=== PATIENT | female | born 1960 | race Caucasian/White ===

== ENCOUNTER 2019-08-04 14:58 | Outpatient (CLI) | payer OTHER, SELFPAY ==
[2019-08-04 16:28] LABS: Blood Urea Nitrogen 21 mg/dL (7-17); Calcium 9.1 mg/dL (8.4-10.2); Carbon Dioxide 22 mmol/L (22-30); Chloride 104 mmol/L (98-107); Estimated Glomerular Filt Rate > 60; Glucose 85 mg/dL (65-105); Potassium 4.3 mmol/L (3.4-5.0); Sodium 140 mmol/L (137-145)
== END 2019-08-04 14:59 | disposition home or self-care (01) ==
LOC: ANHLAB 15:02
PROVIDERS: PCP Internal Medicine; Visit Provider Anesthesiology
DX: Z79.899 Other long term (current) drug therapy (principal)
CPT/HCPCS: 36415; 80048

== ENCOUNTER 2019-08-09 01:17 | Day surgery (SDC) | payer OTHER, SELFPAY ==
[2019-07-26 13:25] VITALS: BMI 39.8
--- NOTE | 2019-08-08 22:08 | HP_ITS ---
DATE OF SERVICE: 08/09/2019 DIAGNOSIS: Osteoarthritis of the 1st carpometacarpal joint with chronic pain. HISTORY: The patient is 58. She is a right-hand dominant lady, who presented first in December of 2018 with problems of bilateral 1st CMC joint osteoarthritis. X-rays were obtained of both wrists. At that time, she underwent corticosteroid injections in December of that year. In January, she came and received a corticosteroid injection into the right 1st A1 marichuy. Later in the year, both CMC joints were reinjected. In July of this year, she presented more interested in surgery and we described that to her placement of incision, the risk to cutaneous nerves, possibility of persistent pain, the need for ongoing therapy and possibly stiffness in her joints. She hopes to proceed with that. She is scheduled for a resection arthroplasty of the left trapezium with Arthrex InternalBrace. PAST MEDICAL HISTORY: ALLERGIES: SHE HAS ALLERGIES TO LATEX AND SULFA. CURRENT MEDICATIONS: Included daily vitamins, some calcium, estradiol, allopurinol, furosemide 40 mg daily. PAST SURGICAL HISTORY: Include a hysterectomy in 1997, tonsillectomy in 1976. She has had some vein stripping in 1998. She is a nonsmoker. FAMILY HISTORY: Noncontributory. SOCIAL HISTORY: She lives in [place]. She works for [employer]. She is . PHYSICAL EXAMINATION: GENERAL: She is a pleasant, informative lady. She is in no acute distress. VITAL SIGNS: She is 5 feet 10 inches and weighs 285 pounds. HEENT: Unremarkable. CHEST: Clear to auscultation. HEART: Regular rate and rhythm by palpation. ABDOMEN: Soft, nontender. EXTREMITIES: Specifically revealed tenderness at the 1st CMC joint on both thumbs. Plan is trapezium resection arthroplasty left hand with Arthrex InternalBrace under general anesthesia. D I MT: Benjamin ALCANTAR
[2019-08-09] VITALS (9 sets, daily range): BP systolic 108–129; BP diastolic 56–73; PULSE 80–96; RESP 10–18; TEMP 36.1; O2SAT 93–99
--- NOTE | ~2019-08-09 | XR_ITS ---
EXAMINATION: XR surgery orthopedic DATE: 08/09/2019 11:21 INDICATION: Left thumb trapezial resection TECHNIQUE: 2 fluoroscopic spot images of the left hand were obtained during procedure performed by Dr Bruce Gillette. Radiologist was not present for the imaging or procedure. The amount of fluoroscopy time use d during this procedure was 0.5 minutes. COMPARISON: None. FINDINGS: Postoperative change of the trapezial resection likely for first carpal metacarpal suspension arthrop lasty. A couple residual small bone fragments are seen at the resection bed. Alignment of the remaini ng bones remains essentially anatomic. No fracture. Expected gas in the soft tissues at the postopera tive bed. IMPRESSION: 1. Fluoroscopy utilized during left trapezial resection. See procedure note for further detail. Reviewed, dictated and finalized at location A. ATIONS LIEUTENANT
--- NOTE | 2019-08-09 07:20 | WPDHPUPDATE1 ---
History and Physical Update Update Date/Time: 08/09/19 07:20 History and Physical has been reviewed, including an updated exam of the patient. There are NO changes in the patient's condition. Risks, benefits, and alternatives have been discussed and questions answered. Patient agrees to proceed with procedure.
[2019-08-09] MEDS: LACTATED RINGERS 1,000 ML 30 ML IV CONT ×2 (08:05→11:38)
--- NOTE | 2019-08-09 08:48 | WPDANESEPPF ---
Anes - Initial Pre Proc Eval Procedure: Operation Date: 08/09/19 09:30 Proposed Procedures p Left Trapezium Resection Arthroplasty - Chaz Gillette MD Date/Time: 08/09/19 08:48 Surgeon: Chaz Gillette MD Pre Op Diagnosis: Arthritis Left Wrist Patient Data Age: 58 Gender: F Height: 1.78 m Weight: 126.8 kg Last Vital Signs Temp 36.1 C L 08/09/19 08:15 Pulse 80 08/09/19 08:15 Resp 18 08/09/19 08:15 BP 121/67 08/09/19 08:15 Pulse Ox 99 08/09/19 08:15 Allergies Allergy/AdvReac Type Severity Reaction Status Date / Time codeine Allergy Severe Nausea and Unverified 08/09/19 07:54 Vomiting latex Allergy Mild Rash Verified 08/09/19 07:54 adhesive Allergy Unknown RED RASH Unverified 08/09/19 07:54 Sulfa (Sulfonamide Allergy Unknown Rash Verified 08/09/19 07:54 Antibiotics) Home Medications Medication Instructions Recorded Confirmed Type allopurinol 100 mg PO DAILY 07/26/19 08/09/19 History calcium carbonate-vitamin D3 1 tablet DAILY 07/26/19 08/09/19 History [Calcium 600 + D(3)] estradiol 1 mg PO DAILY 07/26/19 08/09/19 History furosemide 40 mg PO DAILY 07/26/19 08/09/19 History multivitamin 1 cap PO DAILY 07/26/19 08/09/19 History Patient hx anesthesia problems: none Family hx anesthesia problems: none PMFSH Past Medical History Medical History (Updated 08/09/19 @ 08:50 by Mehul Loya MD) Arthritis Gout Morbid obesity with BMI of 40.0-44.9, adult Surgical History Surgical History (Updated 08/09/19 @ 08:50 by Mehul Loya MD) H/O: hysterectomy Social History Social History Smoking status: Never smoker Anes - Eval Final PreProcedure Day of Procedure 08/09/19 08:48 Patient weight: morbidly obese Heart: regular rate and rhythm Lungs: clear to auscultation and normal air movement Airway: Mallampati scale class II Neurological: alert and oriented Last oral intake: >/= 8 hours ASA classification: III Emergent: no Anesthetic plan: proceed Anesthesia type and monitoring: general LMA Informed Consent: The patient's anesthetic plan and its attendant risks and benefits were discussed with the patient/family/POA. Questions were solicited and answers provided to the satisfaction of the patient/family/POA.
--- NOTE | 2019-08-09 09:35 | P.OPB_ITS ---
Procedure Note - Brief Procedure Note - Brief Date of procedure: 08/09/19 Pre-op diagnosis: Arthritis Left Wrist Post-op diagnosis: same (Osteoarthritis of left 1st carpometacarpal joint) Procedure performed: Left trapezium resection arthroplasty with Arthrex Business Rules Analyst alBrace suspension. Implants: Arthrex InternalBrace Anesthesia: GETA Surgeon: Chaz Gillette MD Crusher Assembler: Dayton Marie Estimated blood loss (mL): 5 Drains: No Packing: No Pathology: none sent Complications: No immediate complications Condition: stable Disposition: PACU
[2019-08-09] MEDS: ceFAZolin 3 GM/D5W 100 ML 100 ML IVPB (09:37)
[2019-08-09] MEDS: LIDO 1%/EPINEPHRINE 1:100,000 20 ML VIAL INFILTRATE (10:09)
[2019-08-09] MEDS: KETOROLAC 30 MG/ML VIAL (*BKC) IV PUSH (11:14)
--- NOTE | 2019-08-09 11:48 | PM.PROC ---
Procedure Note - Detailed Date of procedure: 08/09/19 Pre-op diagnosis: Arthritis Left Wrist Post-op diagnosis: same (Left 1st carpal metacarpal joint osteoarthritis) Procedure performed: Left trapezium resection arthroplasty with Arthrex InternalBrace. Description of procedure: The left wrist was marked in the holding area. The patient was taken to the operating room and placed supine on the operating table. A time-out was held and confirmed. The extremity was prepped and draped in usual fashion as she was given general endotracheal intubation anesthesia. The extremity was marked for the incision and locally infiltrated with 1% lidocaine with epinephrine. The tourniquet was inflated to 250 mmHg. The incision was made as marked and carried bluntly through the subcutaneous tissue to the 1st carpal metacarpal joint capsule. Cutaneous nerves were carefully identified and dissected out of harm's way. The extensor pollicis brevis and abductor pollicis longus were identified. The dissection was carried out between these 2. An incision was made through the dorsal joint capsule and the capsular tissue was dissected away from the base of the metacarpal and the presenting surface of the trapezium. Dissection of the trapezium was done with a [place] elevator in large part we also utilized a half-inch osteotome and mallet to split this bone. It was removed piecemeal with a rongeur. The flexor carpi radialis was identified deep in this wound and was not disturbed. The dorsal branch of the radial artery was not identified. The 1st dorsal compartment was opened from within this wound. C-arm images confirmed the removal of the trapezium. The Arthrex internal brace components were brought onto the back table. The appropriate C-wire was passed into the base of the 1st metacarpal and its position also was confirmed with the C-arm. The internal brace was attached to the base of the metacarpal. C-arm images with a free C-wire were again used to identify the appropriate site for insertion into the base of the 2nd metacarpal. The that hole was drilled with the guidewire. Its position was confirmed on PA and lateral images. It was overdrilled and the ulnar end of the internal brace applied with the thumb in adduction. C-arm images confirmed the very satisfactory position of the metacarpal and visual exam confirmed the stability of it. The capsular tissue was repaired with 3-0 Vicryl, inverting some into the cavity. The extensor pollicis brevis and abductor pollicis longus were left in situ and not joined. We demonstrated satisfactory range of motion of the thumb. The skin was closed with a running 5 0 nylon suture. This area was infiltrated with 0.5% Marcaine 10 milliliter. A soft bulky bandage with a thumb spica splint was applied for temporary use. She is discharged with instructions in wound care and follow-up she has a prescription for hydrocodone . Surgeon: Chaz Gillette MD
--- NOTE | 2019-08-09 14:11 | SUR.PHASEII ---
1400- PT DOZING AT INTERVALS. FAMILY MEMBER IN ROOM. DISCHARGE INSTRUCTIONS REVIEWED WITH PT AND FAMILY. PT WANTS TO CONTINUE TO STAY IN [facility]. STATES SHE ISN'T READY YET TO TRY TO GET DRESSED.
== END 2019-08-09 14:40 | disposition home or self-care (01) ==
PROVIDERS: PCP Internal Medicine; Visit Provider Plastic Surgery
PROC: (CPT 25447; principal; 2019-08-09 09:30)
DX: M18.12 Unilateral primary osteoarthritis of first carpometacarpal joint, left hand (principal); M10.9 Gout, unspecified; E66.01 Morbid (severe) obesity due to excess calories; Z68.41 Body mass index [BMI] 40.0-44.9, adult
CPT/HCPCS: 25447; 76000; A9270; J0131; J0690; J1100; J1170; J1885; J2250; J2405; J2704; J3010; J7120

== ENCOUNTER 2019-10-10 14:30 | Outpatient (RCR) | payer OTHER, SELFPAY ==
--- NOTE | 2019-08-23 11:30 | OTOPEVAL ---
OCCUPATIONAL THERAPY INITIAL EVALUATION 08/23/2019 Thank you for referring this patient to [facility]. Rosa M will benefit from skilled OT 2x/week for 4 weeks for deficits outlined below. Please review, sign, date and return this plan of care BRENT. I agree with and certify that the following plan of care is medically necessary. Referring Physician Date Attending Provider: Chaz Gillette MD *OT Outpatient Evaluation Start: 08/23/19 10:39 Outpatient Past Medical History Gastrointestinal History Hx Cholecystectomy Yes Genitourinary History Hx Kidney Stones Yes: ESWL Musculoskeletal History Hx Arthritis Yes: BILATERAL HANDS/KNEES Hx Gout Yes: POSSIBLE Hematological History Hx Hematological Disorders No Significant History Endocrine History Hx Endocrine Disorders No Significant History HEENT History Hx Tonsillectomy Yes Integumentary History Hx Skin Disorders No Significant History Reproductive History Hx Hysterectomy Yes Psychosocial History Hx Psychiatric Disorders No Significant History Pain History History of Any Previous or Ongoing No Significant History Instance of Pain Anesthesia History Hx Anesthesia Reactions No Significant History Evaluation Information Problem Diagnosis (L) CMC arthritis Onset 08/09/19 Additional Evaluation Detail s/p (L) trapezium resection with Arthrex internal brace Subjective Information Rosa M reports she has been Query Text:As Reported By Patient/ weaning herself off the brace Family and in the past few days has not worn the brace at all. She also no longer sleeps in the brace. She has been trying to use her hand as much as possible . She is eager to get back to work. 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 She has returned to doing laundry, cooking, and driving. She is not back to work yet, however she will have to be able to use a computer/type, count money and change, stock supplies, and lift. She anticipates
--- NOTE | 2019-09-18 16:09 | OTOPEVAL ---
OCCUPATIONAL THERAPY RE-EVALUATION REPORT 09/18/2019 Thank you for referring this patient to [facility]. As noted below, Rosa M is making excellent gains with functional use, pain reduction, and ROM. She will benefit from continued skilled OT 1x/week for 3 weeks for progression of carbon paper interleafer and pinch strengthening, manual therapy, and use of modalities. Please review, sign, date and return this re-evaluation report BRENT. I agree with and certify that the following plan of care is medically necessary. Referring Physician Date Admitting Provider: Attending Provider: Chaz Gillette MD Referring Provider: *OT Outpatient Re-Evaluation Evaluation Information Problem Diagnosis (L) CMC arthritis Onset 08/09/19 Additional Evaluation Detail s/p (L) trapezium resection with Arthrex internal brace Subjective Information Rosa M reports that everything Query Text:As Reported By Patient/ has gotten easier from her Family since she started coming to therapy. She is able to eat with the left hand, lifting objects, doing the dishes, counting money, and using the register at work. She continues to have some pain, but overall it has decreased significantly. Pain with pinching/pressure with the thumb. Pain Assessment Timing of Pain Assessment Timing of Pain Assessment Re-assessment Pain Scale Pain Scale Used Numeric (1 - 10) Self Report Pain Assessment Left Hand(s) Reported Pain Level 0 Current Pain Intensity 0 Lowest Pain Intensity 0 Greatest Pain Intensity 3 Other Pain Aggravating Factors Pinching Pain Score Pain Score 0: Self Report Upper Extremity Range of Motion Wrist Range of Motion Left Wrist Flexion - Active 45 Wrist Extension - Active 65 Wrist Radial Deviation - Active 10 Wrist Ulnar Deviation - Active 25 Wrist Range of Motion Limitations Pain Wrist Range of Motion Comments (L) wrist AROM from 08/23/19: flexion 45* - R wrist flexion is also 45* extension 50* RD 5* UD 25* Finger Range of Motion Left Reason Not Measured WNL/Left Thumb Range of Motion Left Thumb MCP Flexion - Active 30 Thumb MCP Flexion - Passive 40 Thumb MCP Extension - Active 0 Thumb IP Flexion - Active 75 Thumb CMC Radial Abduction - Active 60 Thumb CMC Palmar Abduction - Active 60 Opposition to 2nd Digit Tip 0 Opposition to 3rd Digit Tip 0 Opposi
--- NOTE | 2019-10-10 15:16 | OTOPEVAL ---
OCCUPATIONAL THERAPY RE-EVAL AND DISCHARGE NOTE 10/10/2019 Thank you for referring Rosa M Heard to [facility]. Plan to discharge today with excellent therapy outcomes. She has minimal pain and no functional limitations at this time. She is currently independent with home exercise program to continue strengthening. Please review, sign, date and return this discharge note BRENT. I agree with and certify that the following plan of care is medically necessary. Referring Physician Date Admitting Provider: Attending Provider: Chaz Gillette MD Referring Provider: *OT Outpatient Re-Evaluation & Discharge Evaluation Information Problem Diagnosis (L) CMC arthritis Onset 08/09/19 Additional Evaluation Detail s/p (L) trapezium resection with Arthrex internal brace Subjective Information Rosa M reports that everything Query Text:As Reported By Patient/ has gotten easier from her Family since she started coming to therapy. She is able to eat with the left hand, lifting objects, doing the dishes, counting money, and using the register at work. She states that she rarely has pain. She no longer has pain with pinching with the thumb. Pain Assessment Timing of Pain Assessment Timing of Pain Assessment Re-assessment Pain Scale Pain Scale Used Numeric (1 - 10) Self Report Pain Assessment Left Hand(s) Reported Pain Level 0 Lowest Pain Intensity 0 Greatest Pain Intensity 2 Pain Score Pain Score 0: Self Report Upper Extremity Range of Motion Wrist Range of Motion Left Wrist Flexion - Active 45 Wrist Extension - Active 70 Wrist Radial Deviation - Active 15 Wrist Ulnar Deviation - Active 35 Wrist Range of Motion Comments (L) wrist AROM from 09/18/19: flexion 45* extension 65* RD 15* UD 25* Finger Range of Motion Left Reason Not Measured WFL/Left Thumb Range of Motion Left Thumb MCP Flexion - Active 40 Thumb MCP Flexion - Passive 50 Thumb MCP Extension - Active 0 Thumb IP Flexion - Active 80 Thumb CMC Radial Abduction - Active 60 Thumb CMC Palmar Abduction - Active 60 Opposition to 2nd Digit Tip 0 Opposition to 3rd Digit Tip 0 Opposition to 4th Digit Tip 0 Opposition to 5th Digit Tip 0 Opposition to 5th Digit Base 1 Thumb Range of Motion Comments Thumb AROM measurements from 09/18/19: CMC radial abd 60* CM
== END 2019-11-06 08:41 | disposition home or self-care (01) ==
LOC: ANHOT 14:30
PROVIDERS: PCP Internal Medicine; Visit Provider Plastic Surgery
DX: Z47.89 Encounter for other orthopedic aftercare (principal)
CPT/HCPCS: 97018; 97035; 97110; 97140; 97165

== ENCOUNTER → 2020-01-22 16:01 | Outpatient (CLI) | payer OTHER, SELFPAY ==
--- NOTE | ~2020-01-22 | XR_ITS ---
EXAMINATION: XR wrist LT min 3V DATE: 01/22/2020 16:13 INDICATION: Osteoarthritis of the left wrist status post trapezium resection TECHNIQUE: Posteroanterior, ulnar deviation, oblique, and lateral views of the left wrist were obtain ed. COMPARISON: 12/23/2018 FINDINGS: There are changes of interval trapezium resection. Bone alignment is normal. There is no fr acture. The soft tissues are normal. IMPRESSION: 1. Interval trapezium resection without acute osseous abnormality. Reviewed, dictated and finalized at location A.
== END ==
PROVIDERS: PCP Internal Medicine; Visit Provider Plastic Surgery
DX: M19.031 Primary osteoarthritis, right wrist (principal)
CPT/HCPCS: 73110

== ENCOUNTER → 2020-04-25 17:19 | Outpatient (CLI) | payer OTHER, SELFPAY ==
--- NOTE | ~2020-04-25 | MM_ITS ---
EXAMINATION: MM screening marlen BI w yash HISTORY: Screening mammogram TECHNIQUE: Craniocaudal and mediolateral oblique 3-D tomosynthesis images were obtained and synthetic 2-D images were generated. CAD analysis was submitted and interpreted. COMPARISON: No prior mammogram is available for comparison at this institution. BREAST PARENCHYMAL COMPOSITION: The breasts are almost entirely fatty. FINDINGS: There is a low-density circumscribed 3.3 mm opacity in the upper outer quadrant left breast , likely a benign intramammary lymph node. There is no evidence of suspicious mass, calcification, or architectural distortion to suggest malignancy in either breast. There has been no suspicious interv al change. IMPRESSION: 1. No mammographic evidence of malignancy. 2. Recommend routine screening mammography in one year. BI-RADS Category 2: Benign finding(s). Reviewed, dictated and finalized at location A.
== END ==
PROVIDERS: PCP Internal Medicine; Visit Provider Obstetrics & Gynecology
DX: Z12.31 Encounter for screening mammogram for malignant neoplasm of breast (principal)
CPT/HCPCS: 77063; 77067

== ENCOUNTER → 2021-01-22 16:56 | Outpatient (CLI) | payer OTHER, SELFPAY ==
--- NOTE | ~2021-01-22 | XR_ITS ---
EXAMINATION: XR wrist RT min 3V EXAM DATE: 01/22/2021 17:11 INDICATION: Osteoarthritis. TECHNIQUE: Right wrist frontal, frontal with ulnar deviation, oblique and lateral projections obtain ed and reviewed. Comparison is made to prior examination from 12/23/2018. FINDINGS: Right wrist scapholunate joint space is maintained. There is moderate to severe 1st carpome tacarpal primary osteoarthritis. There are no acute fractures or dislocations identified. There is n o subcutaneous gas. The soft tissue is unremarkable. There are no radiopaque foreign bodies. IMPRESSION: Moderate to severe right 1st CMC osteoarthritis. Reviewed, dictated and finalized at location G.
== END ==
PROVIDERS: Visit Provider Plastic Surgery
DX: M19.031 Primary osteoarthritis, right wrist (principal); M18.11 Unilateral primary osteoarthritis of first carpometacarpal joint, right hand
CPT/HCPCS: 73110

== ENCOUNTER 2021-02-26 14:26 | Outpatient (CLI) | payer OTHER, SELFPAY ==
[2021-02-26 15:22] LABS: Anion Gap 6 mmol/L (8-16); Blood Urea Nitrogen 16 mg/dL (7-17); Calcium 8.9 mg/dL (8.4-10.2); Carbon Dioxide 30 mmol/L (22-30); Chloride 100 mmol/L (98-107); Estimated Glomerular Filt Rate > 60; Glucose 102 mg/dL (65-110); Potassium 3.7 mmol/L (3.4-5.0); Sodium 136 mmol/L (137-145)
== END 2021-02-26 14:27 | disposition home or self-care (01) ==
PROVIDERS: Anesthesiology; PCP Internal Medicine; Visit Provider Plastic Surgery
DX: Z01.818 Encounter for other preprocedural examination (principal); T50.2X5A Adverse effect of carbonic-anhydrase inhibitors, benzothiadiazides and other diuretics, initial encounter
CPT/HCPCS: 36415; 80048

== ENCOUNTER 2021-02-27 01:00 | Day surgery (SDC) | payer OTHER, SELFPAY ==
[2021-02-25 15:19] VITALS: BMI 41.0
--- NOTE | 2021-02-26 13:43 | WPDANESEPPF ---
Anes - Initial Pre Proc Eval Procedure: Operation Date: 02/27/21 07:30 Proposed Procedures p Right Trapezium Resection Arthroplasty with Arthrex Internal Brace - Chaz Gillette MD Date/Time: 02/26/21 13:43 Surgeon: Chaz Gillette MD Pre Op Diagnosis: right 1st carpometacarpal joint OA Patient Data Age: 60 Gender: F Height: 1.78 m Weight: 129.73 kg Allergies Allergy/AdvReac Type Severity Reaction Status Date / Time codeine Allergy Severe Nausea and Verified 02/27/21 06:18 Vomiting latex Allergy Mild Rash Verified 02/27/21 06:18 adhesive Allergy Unknown RED RASH Verified 02/27/21 06:18 Sulfa (Sulfonamide Allergy Unknown Rash Verified 02/27/21 06:18 Antibiotics) tramadol AdvReac Mild Other Verified 02/27/21 06:19 Home Medications Medication Instructions Recorded Confirmed Type allopurinol 100 mg PO DAILY 07/26/19 02/27/21 History estradiol 1 mg PO DAILY 07/26/19 02/27/21 History furosemide 40 mg PO DAILY 07/26/19 02/27/21 History cholecalciferol (vitamin D3) 50 mcg PO DAILY 02/25/21 02/27/21 History [Vitamin D3] fexofenadine-pseudoephedrine 1 tablet PO QAM PRN 02/25/21 02/27/21 History [Almaz-D 24 Hour] ibuprofen [Advil] 600 mg PO Q6H PRN 02/25/21 02/25/21 History multivitamin [Multivitamin 1 tablet PO DAILY 02/25/21 02/27/21 History W/Vitamin C] zinc sulfate 220 mg PO DAILY 02/25/21 02/27/21 History Patient hx anesthesia problems: none Family hx anesthesia problems: none PMFSH Past Medical History Medical History (Updated 08/09/19 @ 08:50 by Mehul Loya MD) Arthritis Gout Morbid obesity with BMI of 40.0-44.9, adult Surgical History Surgical History (Updated 08/09/19 @ 08:50 by Mehul Loya MD) H/O: hysterectomy Social History Social History Smoking status: Never smoker Second hand tobacco smoke exposure: No Alcohol intake: never Substance use: never Substance use type: does not use Living arrangements: with family Spiritual care concerns: No Anes - Eval Final PreProcedure Day of Procedure 02/26/21 13:43 Patient weight: obese Heart: regular rate and rhythm Lungs: clear to auscultation and normal air movement Airway: Mallampati scale class II Neurological: alert and oriented Last oral intake: >/= 8 hours ASA classification: III Emergent: no Anesthetic plan: proceed Anesthesia type and monitoring: general LMA Informed Consent: The patient's anesthetic plan and its attendant risks and benefits were discussed with the patient/family/POA. Questions were solicited and answers provided to the satisfaction of the patient/family/POA.
[2021-02-27] VITALS (7 sets, daily range): BP systolic 109–130; BP diastolic 74–86; PULSE 67–88; RESP 12–21; TEMP 36.6; O2SAT 99–100; BMI 40.2
--- NOTE | ~2021-02-27 | XR_ITS ---
EXAMINATION: XR surgery orthopedic DATE: 02/27/2021 09:00 INDICATION: Right thumb arthroplasty TECHNIQUE: 4 fluoroscopic images of the right wrist and carpus were obtained during procedure perform ed by Dr. Gillette. Radiologist was not present for the imaging or procedure. The amount of fluoroscopy time used during this procedure was 0.3 minutes. COMPARISON: 01/22/2021 FINDINGS: The trapezium has been resected with expected small amount of soft tissue gas at the operative bed. T here is a round lucency at the base of the first metacarpal likely representing a tendon tunnel or an chor site for the first carpometacarpal suspension arthroplasty. Alignment remains near-anatomic. No fractures identified. IMPRESSION: 1. Expected appearance of a first carpal metacarpal suspension arthroplasty with resection of the tra pezium. Reviewed, dictated and finalized at location B. IMPRESSION: 1. Expected appearance of a first carpal metacarpal suspension arthroplasty wit h resection of the trapezium.
--- NOTE | 2021-02-27 07:12 | WPDHPUPDATE1 ---
History and Physical Update Update Date/Time: 02/27/21 07:12 History and Physical has been reviewed, including an updated exam of the patient. There are NO changes in the patient's condition. Risks, benefits, and alternatives have been discussed and questions answered. Patient agrees to proceed with procedure.
[2021-02-27] MEDS: LACTATED RINGERS 1,000 ML 30 ML IV CONT ×2 (07:24→09:18)
[2021-02-27] MEDS: ceFAZolin 3 GM/D5W 100 ML 100 ML IVPB (07:28)
--- NOTE | 2021-02-27 07:38 | PM.OP ---
Procedure Note - Brief Procedure Note - Brief Date of procedure: 02/27/21 Pre-op diagnosis: right 1st carpometacarpal joint OA Post-op diagnosis: same Procedure performed: Right trapezium resection arthroplasty with Arthrex internal brace Implants: Arthrex internal brace Anesthesia: GLMA Surgeon: Chaz Gillette MD Slide Fastener Repairer: Sindhu Drains: No Packing: No Pathology: none sent Complications: No immediate complications Condition: stable Disposition: PACU
[2021-02-27] MEDS: KETOROLAC 15 MG/ML VIAL (*BKC) IV PUSH (07:45)
[2021-02-27] MEDS: LIDO 1%/EPINEPHRINE 1:100,000 50 ML VIAL INFILTRATE (08:48)
--- NOTE | 2021-02-27 09:29 | P.OP_ITS ---
Procedure Note - Detailed Date of Procedure 02/27/21 Pre-op Diagnosis right 1st carpometacarpal joint OA Post-op Diagnosis same Procedure Performed Right trapezium resection arthroplasty with Arthrex internal brace Surgeon Chaz Gillette MD Accounting Manager Sindhu Loya Anesthesia general Indications Right 1st carpal metacarpal joint osteoarthritic pain failing conservative treatment Description of Procedure The right basal joint area was marked on the patient's hand in the preop area. She was then taken to the operating room placed supine on the operating table. A time-out was held and confirmed. She was given general endotracheal a nesthesia. Was also given thumb mg of IV Tylenol firm 15 mg of IV Toradol. She had already received 3 g of IV Ancef. The right upper extremity was prepped and draped in the usual fashion. The site was marked for an incision and locally infiltrated with 1% lidocaine with epinephrine. The extremity was exsanguinated with the use of a 4 in Viet wrap and the tourniquet was inflated to 250 mmHg. The incision was made as marked and dissection was carried through the subcutaneous tissue. The extensor tendons were identified. The single cutaneous sensory nerve branch was identified and retracted to the dorsal aspect out of harm's way. The interspace between the extensor pollicis brevis and the abductor pollicis longus was incised to access the joint capsule. The base of the metacarpal was stripped several mm to allow visualization into the joint. The capsule was dissected away from the trapezium. The trapezium was eventually divided with an osteotome and was removed with the rongeur. The site was imaged to confirm removal of the trapezium. The Arthrex internal brace system was applied at this point with drilling of the guide holes at the base of the 2nd metacarpal and the base of the 1st metacarpal. Those sites were imaged with the guidewire in place. The Arthrex internal brace anchor was inserted through the base of the 2nd metacarpal. The strap was brought across under the 1st metacarpal through a separate fenestration between the abductor pollicis longus and abductor pollicis brevis. The 2nd anchor was placed at that point and satisfactory stability was achieved. The capsule tissue was then repaired with 3-0 Ethibond. The wound was closed with 4-0 intradermal Monocryl. 6 milliliter of 0.25% Marcaine with epinephrine were injected into this area. The tourniquet was released before wound closure and the site was relatively dry. The soft bandage with an Orthoglass thumb spica splint was applied the discharge in the operating room stable condition. She has declined prescription narcotic pain medicine that she did tolerate well last case. She has ibuprofen and tramadol at home. Implants Arthrex internal brace Estimated Blood Loss 5 Tourniquet Time 51 Drains No Packing No Pathology none sent Complications No immediate complications Condition stable Disposition PACU
--- NOTE | 2021-02-27 09:49 | SUR.PHASEI ---
Simple mask removed at 0945.
== END 2021-02-27 10:48 | disposition home or self-care (01) ==
PROVIDERS: PCP Internal Medicine; Visit Provider Plastic Surgery
PROC: (CPT 25447; principal; 2021-02-27 07:30)
DX: M18.11 Unilateral primary osteoarthritis of first carpometacarpal joint, right hand (principal)
CPT/HCPCS: 25447; 36415; 80048; A9270; C1713; J0131; J0690; J1100; J1885; J2405; J2704; J3010; J7120

== ENCOUNTER 2021-04-15 15:00 | Outpatient (RCR) | payer OTHER, SELFPAY ==
--- NOTE | 2021-03-18 08:57 | OTOPEVAL ---
OCCUPATIONAL THERAPY INITIAL EVALUATION REPORT 03/18/21 Thank you for referring Rosa M Heard to [facility].? The patient is scheduled to be seen for therapy? 1x/week for 4 weeks. Please review, sign, date and return this plan of care BRENT. I agree with and certify that the following plan of care is medically necessary. Referring Physician Date Referring Provider: Chaz Gillette MD *OT Outpatient Evaluation Start: 03/18/21 08:08 Outpatient Past Medical History Neurological History Hx Neurological Disorders No Significant History Cardiovascular History Hx Vascular Surgery Yes: VARICOSE VEINS WITH STRIPPING Respiratory History Hx Other Respiratory Disorders Yes: Covid + 2019; not hospitalized Gastrointestinal History Hx Cholecystectomy Yes Hx Diverticulitis Yes Genitourinary History Hx Kidney Stones Yes: ESWL Hx Other Genitourinary Disorders Yes: urethral sling 2019 Musculoskeletal History Hx Arthritis Yes: BILATERAL HANDS/KNEES Hx Orthopedic Surgery Yes: Bilat CMC trapezium rescection Hx Other Musculoskeletal Disorders Yes: joint osteoarthritis Hematological History Hx Hematological Disorders No Significant History Endocrine History Hx Endocrine Disorders No Significant History HEENT History Hx Tonsillectomy Yes Integumentary History Hx Skin Disorders No Significant History Reproductive History Hx Endometriosis Yes Hx Fibroids Yes Hx Hysterectomy Yes: 1997 Psychosocial History Hx Psychiatric Disorders No Significant History Pain History History of Any Previous or Ongoing No Significant History Instance of Pain Anesthesia History Hx Other Anesthesia Reactions Yes: slow to wake up Other History Hx of Latex Allergy Yes Evaluation Information Problem Diagnosis s/p right trapezium resection with Arthrex Internal Brace Onset 02/27/21 Cause CMC OA Subjective Information Patient has had the left hand Query Text:As Reported By Patient/ CMC done ~1.5 years ago. She Family states the left hand feels normal . 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 She is off work right now. Overall reports the right hand feels a lot better than the left
--- NOTE | 2021-04-15 15:45 | OTOPEVAL ---
OCCUPATIONAL THERAPY RE-EVALUATION AND DISCHARGE SUMMARY 04/15/21 Patient presents today for OT re-evaluation 7 weeks s/p CMC arthroplasty. She has made improvements with functional ROM and strength, but does have some residual deficits for which she has HEP to address. She has an excellent understanding how to progress to more resistance with her HEP and understands what to expect as she has had her left CMC done also. Recommend discharging from OT today with independence in HEP. Thank you for referring Rosa M Heard to [facility].? Please review, sign, date and return this D/C Summary BRENT. I agree with and certify that the following plan of care is medically necessary. Referring Physician Date Referring Provider: Chaz Gillette MD *OT Outpatient Evaluation Start: 03/18/21 08:08 Evaluation Information Problem Diagnosis s/p right trapezium resection with Arthrex Internal Brace Onset 02/27/21 Cause CMC OA Additional Evaluation Detail 03/18/21 - Initial evaluation. Patient has been working on active/passive ROM and began strengthening at 6 weeks post op. She has been progressively using her hand for more tasks with less pain and overall is doing excellent. Subjective Information Patient reports that her ROM Query Text:As Reported By Patient/ and strength is improving. 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 Also noted improvements with writing. She states the arm will let me know when I've overused it . Pain Assessment Timing of Pain Assessment Timing of Pain Assessment Re-assessment Pain Scale Pain Scale Used Numeric (1 - 10) Self Report Pain Assessment Right Thumb(s) Reported Pain Level 0 Lowest Pain Intensity 0 Greatest Pain Intensity 4 Pain Aggravating Factors Exercise/Activity Pain Score Pain Score 0: Self Report Upper Extremity Range of Motion Wrist Range of Motion Right Wrist Flexion - Active 60 Wrist Extension - Active 65 Wrist Radial Deviation - Active 20 Wrist Ulnar Deviation - Active 25 Wrist Range of Motion Comments Flexion improved by 10* Extension improved by 35* RD improved by 10* UD remained WNL Finger Range of Motion Right Reason Not Measured WNL/Right Thumb Range of Motion Right Thumb MCP Flexion - Active 35 Thumb IP Flexion - Active
== END 2021-04-16 09:39 | disposition home or self-care (01) ==
LOC: ANHOT 15:00
PROVIDERS: PCP Internal Medicine; Visit Provider Plastic Surgery
DX: Z48.89 Encounter for other specified surgical aftercare (principal)
CPT/HCPCS: 97018; 97110; 97165

== ENCOUNTER 2022-11-21 07:51 | Outpatient (CLI) | payer OTHER, SELFPAY ==
[2022-11-21 08:33] LABS: Anion Gap 4 mmol/L (8-16); Blood Urea Nitrogen 19 mg/dL (7-17); Calcium 8.7 mg/dL (8.4-10.2); Carbon Dioxide 29 mmol/L (22-30); Chloride 107 mmol/L (98-107); Estimated Glomerular Filt Rate > 60; Glucose 87 mg/dL (65-110); Potassium 4.2 mmol/L (3.4-5.0); Sodium 140 mmol/L (137-145)
== END 2022-11-21 07:52 | disposition home or self-care (01) ==
LOC: ANHLAB 07:53
PROVIDERS: PCP Physician Assistant Medical; Visit Provider Anesthesiology
DX: R35.89 Other polyuria (principal); Z01.818 Encounter for other preprocedural examination
CPT/HCPCS: 36415; 80048

== ENCOUNTER 2022-11-24 00:31 | Day surgery (SDC) | payer OTHER, SELFPAY ==
[2022-11-16 14:40] VITALS: BMI 39.9
--- NOTE | 2022-11-16 14:44 | SUR.PREOP ---
Report to the Outpatient Waiting Room, entrance under the green pavilion located off [facility], at time _0600 on date _11/24/22 . Planned Procedure Time: __0730 . Time changes happen often and if your time is changed the preop area will call you the afternoon before. - You and your visitor will be asked to self-screen and do not enter if you have any COVID symptoms. - A mask is optional within the hospital at this time. Patients may have clear liquids (water, carbonated beverages, clear teas, apple juice) until 3 hours prior to surgery with a maximum of 20 ounces. - No food from midnight until time of surgery - Infants may have breast milk until 4 hours before surgery, formula 6 hours prior to surgery. - Children will be allowed to drink immediately following surgery. If applicable, please bring a bottle or sippy cup to assist with drinking. Juice, water, soda, and popsicles are readily available. For infants on formula, please bring formula the day of surgery. Pacifiers are allowed. Take the following medications with a SIP of water the morning of surgery: __n/a DO NOT STOP ANY OF YOUR OTHER PRESCRIPTION MEDICATIONS PRIOR TO SURGERY ?EXCEPT THE FOLLOWING Medications to discontinue per physician _vitamin supplements Date to take last dose__11/21/22 Please no make-up, nail korean, hairspray, perfume, deodorant, or body powder the day of surgery. No jewelry (including any body piercings) or valuables the day of surgery, leave them at home. Please take a shower or bath the night before, or the morning of, surgery with an antibacterial soap. Wear comfortable, loose fitting clothing. Children are encouraged to wear pajamas. - Jewelry must be removed prior to entering the operating room. Rings and piercings that are not removed may be cut off. - The hospital will not accept responsibility for valuables. - Please leave all valuables, including medications, at home the day of surgery. If you are going home after surgery, a licensed regional company flatbed truck driver must drive you home. - NO public transportation without another adult if you receive anesthesia. - We recommend that an adult stay with you for 24 hours following discharge. - We also recommend that you do not drive, make important decision, drink alcoholic beverages, or take any drugs that were not prescribed by your health care provider for at least 24 hours after your discharge time. For Pediatric surgeries, we recommend two adults accompany the child home. Follow any additional instructions given to you from your surgeon. If you or anyone in your household have experienced Covid symptoms in the past week, please notify your surgeon or the nurse liaison at the phone number below for possible testing. Telephone instructions given to _oriana mendiola and asked if any additional questions and then verbalized understanding. Patient advised to call surgeon office or pre surgery nurse liaison [phone] if any additional questions.
[2022-11-24] MEDS: LACTATED RINGERS 1,000 ML 30 ML IV CONT (06:55)
--- NOTE | 2022-11-24 06:59 | WPDHPUPDATE1 ---
History and Physical Update Update Date/Time: 11/24/22 06:59 History and Physical has been reviewed, including an updated exam of the patient. There are NO changes in the patient's condition. Risks, benefits, and alternatives have been discussed and questions answered. Patient agrees to proceed with procedure.
[2022-11-24 07:02] VITALS: BP 105/89; PULSE 72; RESP 14; TEMP 36.3; O2SAT 100
--- NOTE | 2022-11-24 07:08 | WPDANESEPPF ---
Anes - Initial Pre Proc Eval Procedure: Operation Date: 11/24/22 07:30 Proposed Procedures p Excision of Two Subcutaneous Masses of Forehead - Gen Sánchez MD Date/Time: 11/24/22 07:08 Surgeon: Gen Sánchez MD Pre Op Diagnosis: 2 Subcutaneous Masses on Forehead Patient Data Age: 62 Gender: F Height: 1.78 m Weight: 121.5 kg Last Vital Signs Temp 97.3 F L 11/24/22 07:02 Pulse 72 11/24/22 07:02 Resp 14 11/24/22 07:02 BP 105/89 11/24/22 07:02 Pulse Ox 100 11/24/22 07:02 O2 Del Method Room Air 11/24/22 07:02 Allergies Allergy/AdvReac Type Severity Reaction Status Date / Time latex Allergy Mild Rash Verified 11/24/22 07:06 adhesive Allergy Unknown RED RASH Verified 11/24/22 07:06 Sulfa (Sulfonamide Allergy Unknown Rash Verified 11/24/22 07:06 Antibiotics) codeine AdvReac Severe Nausea and Verified 11/24/22 07:06 Vomiting tramadol AdvReac Mild Hallucinati Verified 11/24/22 07:06 ng Home Medications Medication Instructions Recorded Confirmed Type cholecalciferol (vitamin D3) 25 50 mcg PO DAILY 02/25/21 11/16/22 History mcg (1,000 unit) tablet (Vitamin D3) fexofenadine-pseudoephedrine ER 1 tablet PO QAM PRN allergies 02/25/21 11/16/22 History 180 mg-240 mg tablet,ext.release 24 hr (Almaz-D 24 Hour) ibuprofen 200 mg tablet (Advil) 600 mg PO Q6H PRN Pain 02/25/21 11/16/22 History multivitamin 1 tablet PO DAILY 02/25/21 11/16/22 History zinc sulfate 220 mg capsule 220 mg PO DAILY 02/25/21 11/16/22 History estradiol 1 mg tablet 1 mg PO DAILY #90 tabs 05/22/22 11/16/22 Rx allopurinol 100 mg tablet 100 mg PO DAILY #90 tabs 08/19/22 11/16/22 Rx furosemide 40 mg tablet 40 mg PO DAILY #90 tabs 08/19/22 11/16/22 Rx celecoxib 200 mg capsule (Celebrex) 200 mg PO BID PRN Pain 11/16/22 11/16/22 History Patient hx anesthesia problems: none Family hx anesthesia problems: none Results Review: All pre-operative results and documents have been reviewed as part of the pre-operative evaluation. [facility] Past Medical History Medical History Arthritis Gout Kidney stone Morbid obesity with BMI of 40.0-44.9, adult Pes planus of both feet Varicose vein of leg had removal Surgical History Surgical History History of bladder suspension procedure History of gynecologic surgery 02/25/09 vaginal bx--benign History of hand surgery 08/09/19 trapeziectomy/ right thumb 02/2021 History of tonsillectomy History of total abdominal hysterectomy and bilateral salpingo-oophorectomy (02/08/98) Family History Family History Father Diabetes mellitus Social History Social History Smoking status: Never smoker Second hand tobacco smoke exposure: No Alcohol intake: never Substance use: never Substance use type: does not use Living arrangements: with family Additional living arrangements comments: Occupation/Education: occupation 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 Gender identity (if verbalized by the patient): Female Sexual Orientation (if Verbalized by the Patient): Straight or Heterosexual Spiritual care concerns: No Anes - Eval Final PreProcedure Day of Procedure 11/24/22 07:08 Patient weight: morbidly obese Heart: regular rate and rhythm Lungs: clear to auscultation Airway: Mallampati scale class III Neurological: alert and oriented Last oral intake: >/= 8 hours ASA classification: III Emergent: no Anesthetic plan: proceed Anesthesia type and monitoring: general GIVS (may use an LMA if needed) and standard monitoring Results Review: All pre-operative results and documents have been reviewed as part of the pre-operative evaluation. Informed Consent: The patient's anesthetic plan and it
[2022-11-24] MEDS: ceFAZolin 3 GM/D5W 100 ML 100 ML IVPB (07:27)
[2022-11-24] MEDS: LIDO 1%/EPINEPHRINE 1:100,000 20 ML VIAL 10 ML INFILTRATE (07:44)
[2022-11-24] MEDS: BUPivacaine HCL 0.25% PF 30 ML VIAL INFILTRATE (07:44)
[2022-11-24 08:18] VITALS: BP 121/67; PULSE 91; RESP 16; O2SAT 94
--- NOTE | 2022-11-24 08:38 | W.PM.PROC2 ---
Procedure Note - Detailed Date of Procedure 11/24/22 Pre-op Diagnosis 2 Subcutaneous Masses on Forehead Post-op Diagnosis Same Procedure Performed Excision subcutaneous mass forehead x 2 (Left: 1.1cm Right: 0.7cm) Surgeon Gen Sánchez MD Anesthesia General Findings clinical findings consistent osteoma x 2 Description of Procedure Preoperatively the risks, benefits, alternatives were discussed in extensive detail. I want her to be realistic about risks involved as well as expectations. Made sure answered all of her questions are satisfaction. Consent obtained. She was marked in the preoperative holding area with her verification. She was taken to the operating room placed supine on the operating room table. Anesthesia provided by anesthesiology. She was prepped and draped standard fashion. 1% lidocaine and 0.25% Marcaine with epinephrine was used anesthetize locally. Once adequate time for hemostasis a 15 blade used to make an incision. The incisions were within 1-2 mm of these were connected to provide good visualization. Dissection was continued down to the frontalis was identified and this was split, not cut and each proceeded the same manner. Subperiosteal these appeared to be an osteoma. I completely elevated with a Reubens elevator. Using an osteotome I was able to remove each of these to nice smooth contour which was then finally contoured using a rasp. These were sent to pathology. I copiously irrigated with saline solution and verified strict hemostasis. Muscle was repaired with 4-0 Monocryl as well as subcutaneous 4-0 Monocryl this is followed by 5-0 nylon. She tolerated the procedure. She was woken taken the PACU without difficulty. All instrument sponge counts correct at the end of the case. Estimated Blood Loss -5.0 Drains No Packing No Pathology Yes (Forehead masses x 2) Complications No immediate complications Condition Stable Disposition PACU
[2022-11-24 08:40] VITALS: BP 129/77; PULSE 75; RESP 18; O2SAT 94
[2022-11-24 09:05] VITALS: BP 133/75; PULSE 65; RESP 16
== END 2022-11-24 09:15 | disposition home or self-care (01) ==
PROVIDERS: PCP Physician Assistant Medical; Visit Provider Surgery Plastic and Reconstructive Surgery
PROC: (CPT 21011; principal; 2022-11-24 07:30)
DX: D16.4 Benign neoplasm of bones of skull and face (principal)
CPT/HCPCS: 21011 ×2; 36415; 80048; 88304; A9270; J0690; J1100; J2405; J2704; J3010; J7120